=== PATIENT | male | born 2000 | race Caucasian/White ===

== ENCOUNTER 2022-02-17 22:44 | Emergency (ER) | payer OTHER ==
[~2022-02-17] VITALS: Ht 180.3 cm; Wt 111.1 kg
[2022-02-18] MEDS ORDERED: NAPROSYN500 MG PO (00:03)
== END 2022-02-18 00:50 | disposition home or self-care (01) ==
LOC: ED 22:44 → EDSEX 22:58 → ED 02-18 00:50
DX: S46.911A Strain of unspecified muscle, fascia and tendon at shoulder and upper arm level, right arm, initial encounter (principal); X50.1XXA Overexertion from prolonged static or awkward postures, initial encounter; Y93.89 Activity, other specified; Y92.89 Other specified places as the place of occurrence of the external cause; Y99.0 Civilian activity done for income or pay

== ENCOUNTER 2023-02-06 23:50 | Emergency (ER) | payer BC ==
[~2023-02-06] VITALS: Ht 154.9 cm; Wt 108.9 kg
[~2023-02-06 23:50] MED LIST: NAPROSYN500 MG PO
== END 2023-02-07 01:39 | disposition home or self-care (01) ==
LOC: ED 23:50
DX: T15.82XA Foreign body in other and multiple parts of external eye, left eye, initial encounter (principal); Z79.899 Other long term (current) drug therapy; X58.XXXA Exposure to other specified factors, initial encounter; Y93.89 Activity, other specified; Y92.89 Other specified places as the place of occurrence of the external cause; Y99.8 Other external cause status